=== PATIENT | male | born 1965 | race African-American/Black ===

== ENCOUNTER 2017-10-13 15:15 | Observation (INO) ==
[2017-10-13 18:33] LABS: Baso % (Auto) 0.4 % (0.0-2.0); Eos % (Auto) 0.2 % (0.0-4.0); Hematocrit 42.9 % (39.0-51.0); Hemoglobin 14.7 gm/dL (13.0-17.0); Lymph # (Auto) 1.8 th/mm3 (1.0-4.8); Lymph % (Auto) 16.4 % (9.0-44.0); Mean Corpuscular HGB Conc 34.2 % (32.0-36.0); Mean Corpuscular Hemoglobin 31.5 pg (27.0-34.0); Mean Platelet Volume 8.2 fL (7.0-11.0); Mono # (Auto) 0.5 th/mm3 (0.0-0.9); Mono % (Auto) 4.8 % (0.0-8.0); Neut # (Auto) 8.5 th/mm3 (1.8-7.7); Neut % (Auto) 78.2 % (16.0-70.0); Platelet Count 319 th/mm3 (150-450); Red Blood Count 4.67 mil/mm3 (4.50-5.90); Red Cell Distribution Width 12.9 % (11.6-17.2); White Blood Count 10.8 th/mm3 (4.0-11.0)
[2017-10-13 18:48] LABS: Activated Partial Thrombo Time 24.2 sec (24.3-30.1); Prothrombin Time 10.4 sec (9.8-11.6)
[2017-10-13 18:52] LABS: Alanine Aminotransferase 35 U/L (12-78); Albumin 4.3 g/dL (3.4-5.0); Anion Gap 6 meq/L (5-15); Aspartate Aminotransferase 22 U/L (15-37); Blood Urea Nitrogen 12 mg/dL (7-18); Calcium 9.6 mg/dL (8.5-10.1); Carbon Dioxide 27.8 meq/L (21.0-32.0); Chloride 104 meq/L (98-107); Glomerular Filtration Rate Greater Than 89 mL/min (>89); Glucose,Random 108 mg/dL (74-106); Lipase 121 U/L (73-393); Potassium 5.2 meq/L (3.5-5.1); Sodium 138 meq/L (136-145)
[2017-10-13 18:55] LABS: Alkaline Phosphatase 57 U/L (45-117); Creatine Kinase 134 U/L (39-308); Total Protein 8.5 g/dL (6.4-8.2)
[2017-10-13 19:08] LABS: Creatine Kinase MB 0.7 ng/mL (0.5-3.6)
--- NOTE | 2017-10-13 19:11 | XR ---
EXAM DATE: 10/13/2017 7:08 PM EDT AGE/SEX: 52 years / Male INDICATIONS: Chest pain. Nausea. Vomiting. Syncope. CLINICAL DATA: This is the patient's initial encounter. Patient reports that signs and symptoms have been present for 2 days and indicates a pain score of 9/10. MEDICAL/SURGICAL HISTORY: . Smoker. None. COMPARISON: No prior exams available for comparison. FINDINGS: A single AP view of the chest demonstrates the lungs to be symmetrically aerated without evidence of mass, infiltrate or effusion. The cardiomediastinal contours are unremarkable. Osseous structures a re intact. CONCLUSION: No acute cardiopulmonary process. Electronically signed by: Servando Frank MD 10/13/2017 7:09 PM EDT
--- NOTE | 2017-10-13 19:31 | ED ---
HPI General Chief complaint: Nausea/Vomiting/Diarrhea Stated complaint: GI/syncope Time Seen by Provider: 10/13/17 17:29 Source: patient Mode of arrival: ambulatory Limitations: no limitations History of Present Illness HPI narrative: Patient is a 52-year-old male who comes in complaining of nausea , vomiting, chest pain. He says that he ate some cherries yesterday and about 30 minutes afterwards started vomiting. He says that while he was here in the waiting room he started having some left-sided chest pain that radiates to his arm. He says he last vomited in the waiting room. He said he had some discomfort in his upper abdomen. He denies fever chills. He has not taken anything for symptoms. Severity is moderate. Related Data Previous Rx's Medication Instructions Recorded amlodipine 5 mg PO DAILY #30 tab 10/14/17 hydrocodone-acetaminophen [Reseda] 1 tab PO Q8H PRN 3 Days #10 tab 10/15/17 ondansetron HCl [Zofran] 4 mg PO DAILY PRN 4 Days #10 tab 10/15/17 Allergies Allergy/AdvReac Type Severity Reaction Status Date / Time No Known Allergies Allergy Verified 10/15/17 09:50 Review of Systems Except as stated in HPI: all other systems reviewed are negative Constitutional Denies chills and Denies fever(s) ENT Denies dizziness Cardiovascular Reports chest pain and Denies dyspnea Respiratory Denies dyspnea Gastrointestinal Reports nausea and Reports vomiting Musculoskeletal Denies myalgias and Denies arthralgias Neurologic Denies frequent falls and Denies focal weakness PMFSH Medical History Medical History Patient denies medical problems (Acute) Surgical History Surgical History No history of previous surgery (Acute) Social History Social History Substance History: Active Abuse Second Hand Smoke Exposure: No Smoking Status: Former smoker Tobacco Type: Cigarettes Packs Per Day: 1 Cigarettes Per Day: 20.0 years: 30 How Often Do You Have a Drink Containing Alcohol: Monthly or less Recent Travel in [facility] within the Last 8 Weeks: No Recent Out of Country Travel within the Last 8 Weeks: No Substance Abuse Detail Marijuana: Substance Use Status: Active Route Used Substance Abuse: Inhalation Reason for Use: Calm Down Immunization History Tetanus Immunization: <5 Years Hx Influenza Vaccine This Season: No Exam Narrative Exam Narrative: GENERAL: Awake and alert, in no acute distress. SKIN: Focused skin assessment warm/dry. No wounds or signs of infection. HEAD: Atraumatic. Normocephalic. EYES: Pupils equal and round. No scleral icterus. ENT: Mucous membranes pink and moist. NECK: Trachea midline. No JVD. CARDIOVASCULAR: Regular rate and rhythm. No murmur appreciated. RESPIRATORY: No accessory muscle use. Clear to auscultation. Breath sounds equal bilaterally. GASTROINTESTINAL: Abdomen soft, non-tender, nondistended. MUSCULOSKELETAL: No obvious deformities. No clubbing. No cyanosis. No edema. NEUROLOGICAL: Awake and alert. No obvious cranial nerve deficits. Motor grossly within normal limits. Normal speech. PSYCHIATRIC: Appropriate mood and affect; insight and judgment normal. Course Initial Documented Vital Signs Temperature 98.6 F 10/13/17 15:22 Pulse Rate 73 10/13/17 15:22 Respiratory Rate 22 10/13/17 15:22 Blood Pressure 149/91 H 10/13/17 15:22 Pulse Oximetry 99 10/13/17 15:22 Last Documented Vital Signs Temperature 98.3 F 10/14/17 13:41 Pulse Rate 76 10/14/17 13:41 Respiratory Rate 16 10/14/17 13:41 Blood Pressure 145/83 H 10/14/17 13:41 Pulse Oximetry 97 10/14/17 13:41 Medical Decision Making [facility] Narrative Medical decision making narrative: Patient is a 52-year-old male who comes in complaining of nausea and vomiting chest pain. Nausea vomiting started yesterday, the chest pains are while he was here in the emergency. IV established, labs sent. Patient connected to the desk monitor. Labs show no acute abnormalities. Chest x-ray performed shows no acute abnormalities. Patient given IV fluids and Zofran. Given aspirin. He will be placed in chest pain center for further management. Differential Diagnosis Differential Diagnosis: Gastroenteritis versus ACS the Lab Data Lab results reviewed: Yes I reviewed the patient's lab results. Result diagrams: 10/13/17 18:18 10/13/17 18:18 Lab Results 10/13/17 10/13/17 10/13/17 Range/Units 18:18 18:18 18:18 WBC 10.8 (4.0-11.0) th/mm3 RBC 4.67 (4.50-5.90) mil/mm3 Hgb 14.7 (13.0-17.0) gm/dL Hct 42.9 (39.0-51.0) % MCV 92.0 (80.0-100.0) fL MCH 31.5 (27.0-34.0) pg MCHC 34.2 (32.0-36.0) % RDW 12.9 (11.6-17.2) % Plt Count 319 (150-450) th/mm3 MPV 8.2 (7.0-11.0) fL Neut % (Auto) 78.2 H (16.0-70.0) % Lymph % (Auto) 16.4 (9.0-44.0) % [place] % (Auto) 4.8 (0.0-8.0) % Eos % (Auto) 0.2 (0.0-4.0) % Baso % (Auto) 0.4 (0.0-2.0) % Neut # (Auto) 8.5 H (1.8-7.7) th/mm3 Lymph # (Auto) 1.8 (1.0-4.8) th/mm3 [place] # (Auto) 0.5 (0.0-0.9) th/mm3 Eos # (Auto) 0.0 (0.0-0.4) th/mm3 Baso # (Auto) 0.0 (0.0-0.2) th/mm3 WBC Differential . Differential Comment Auto diff final PT 10.4 (9.8-11.6) sec INR 1.0 Ratio APTT 24.2 L (24.3-30.1) sec Sodium 138 (136-145) meq/L Potassium 5.2 H (3.5-5.1) meq/L Chloride 104 (98-107) meq/L Carbon Dioxide 27.8 (21.0-32.0) meq/L Anion Gap 6 (5-15) meq/L BUN 12 (7-18) mg/dL Creatinine 0.96 (0.60-1.30) mg/dL Estimated GFR Greater than 89 (>89) mL/min Random Glucose 108 H (74-106) mg/dL Calcium 9.6 (8.5-10.1) mg/dL Total Bilirubin 0.4 (0.2-1.0) mg/dL AST 22 (15-37) U/L ALT 35 (12-78) U/L Alkaline Phosphatase 57 (45-117) U/L Total Creatine Kinase 134 (39-308) U/L CK-MB (CK-2) 0.7 (0.5-3.6) ng/mL Troponin I Less than 0.02 L (0.02-0.05) ng/mL Total Protein 8.5 H (6.4-8.2) g/dL Albumin 4.3 (3.4-5.0) g/dL Triglycerides (42-150) mg/dL Cholesterol (120-200) mg/dL LDL Cholesterol, Calc (0-99) mg/dL HDL Cholesterol (40.0-60.0) mg/dL Cholesterol/HDL Ratio Ratio Lipase 121 (73-393) U/L 10/13/17 10/14/17 10/14/17 Range/Units 22:22 00:39 00:39 WBC (4.0-11.0) th/mm3 RBC (4.50-5.90) mil/mm3 Hgb (13.0-17.0) gm/dL Hct (39.0-51.0) % MCV (80.0-100.0) fL MCH (27.0-34.0) pg MCHC (32.0-36.0) % RDW (11.6-17.2) % Plt Count (150-450) th/mm3 MPV (7.0-11.0) fL Neut % (Auto) (16.0-70.0) % Lymph % (Auto) (9.0-44.0) % [place] % (Auto) (0.0-8.0) % Eos % (Auto) (0.0-4.0) % Baso % (Auto) (0.0-2.0) % Neut # (Auto) (1.8-7.7) th/mm3 Lymph # (Auto) (1.0-4.8) th/mm3 [place] # (Auto) (0.0-0.9) th/mm3 Eos # (Auto) (0.0-0.4) th/mm3 Baso # (Auto) (0.0-0.2) th/mm3 WBC Differential Differential Comment PT (9.8-11.6) sec INR Ratio APTT (24.3-30.1) sec Sodium (136-145) meq/L Potassium (3.5-5.1) meq/L Chloride (98-107) meq/L Carbon Dioxide (21.0-32.0) meq/L Anion Gap (5-15) meq/L BUN (7-18) mg/dL Creatinine (0.60-1.30) mg/dL Estimated GFR (>89) mL/min Random Glucose (74-106) mg/dL Calcium (8.5-10.1) mg/dL Total Bilirubin (0.2-1.0) mg/dL AST (15-37) U/L ALT (12-78) U/L Alkaline Phosphatase (45-117) U/L Total Creatine Kinase 107 (39-308) U/L CK-MB (CK-2) (0.5-3.6) ng/mL Troponin I Less than 0.02 L Less than 0.02 L (0.02-0.05) ng/mL Total Protein (6.4-8.2) g/dL Albumin (3.4-5.0) g/dL Triglycerides 209 H (42-150) mg/dL Cholesterol 248 H (120-200) mg/dL LDL Cholesterol, Calc 153 H (0-99) mg/dL HDL Cholesterol 52.9 (40.0-60.0) mg/dL Cholesterol/HDL Ratio 4.68 Ratio Lipase (73-393) U/L Imaging Data Radiologist's impression: Chest X-Ray 10/13/17 18:14 CONCLUSION: No acute cardiopulmonary process. Myocardial Perfusion Scan Nuc Med 10/14/17 00:00 CONCLUSION: 1. Negative examination. ECG Data EKG Prior to Arrival: No Attestation: I personally reviewed and interpreted this ECG as follows: Interpretation: ECG shows normal sinus rhythm, no ST elevation or depression, normal intervals Discharge Plan Discharge Disposition Patient Disposition: 01 Discharge Home Discharge Condition Condition: Good Discharge Order Discharge Orders: Discharge Order (Routine); Ordered 10/14/17 Ordered By: Kiersten Hassan Discharge Details Anticipated Discharge Date: 10/14/17 Discharge Comment: Establish with a primary care provider Diagnosis: Chest pain in adult Physicians Team ED Provider: Briseyda Shearer Primary Care Provider: Primary Care Johanny Alvarez Attending Provider: Eduardo Pedraza Discharge Interventions Interventions: ED Discharge Assessment Last Done: 10/14/17 13:19 Status ED Status: Left Department Discharge Information Discharge Date/Time: 10/14/17 00:00
[2017-10-13] MEDS ORDERED: Acetaminophen 500 MG Tablet PO PRN (20:34)
[2017-10-13 23:06] LABS: Creatine Kinase 107 U/L (39-308)
--- NOTE | 2017-10-14 08:07 | P.HPCA ---
History of Present Illness Primary Care Physician: No Primary Care Physician Chief Complaint: Chest pain History of Present Illness: 52-year-old male current smoker without known medical history presents to ER for further evaluation of chest pain. afternoon immediately after eating a bag of cherries became nauseous with frequent vomiting. Vomited throughout evening. Monday morning upon awakening noticed left anterior and substernal chest pain. Characterized as though someone "sitting on my chest." Severe in severity. Radiation to left shoulder and left arm. Left fingertips characterized as numbness and tingling. Duration 2 hours. Associated symptoms included nausea, dyspnea, it hurt to take a deep breath. No diaphoresis. Vomiting has resolved. No known precipitating or relieving factors. reports on way to hospital he "passed out" for about 3 minutes. He does not recall syncope episode or events prior to syncopal episode. Moved from [place] to [place] last week. Has not seen a general practitioner in years. No known hypertension, hyperlipidemia, coronary artery disease, or diabetes. No fever. No particular movement or position makes pain better or worse. No position or movement makes pain better or worse. Endorses similar discomfort one week. Nonexertional chest tightness, duration of "half the day." Reports hematuria for "many years." Instructed to follow up with an oncologist many years ago. Denies follow up with hematuria, stating "I was afraid of what doctors would say." Fell off [employer] a couple days ago. History of herniated disk in low back and reports reinjuring area during fall. No current chest pain. Current low back pain moderate in severity. No past cardiac testing. - Diagnosis (1) Chest pain in adult (2) Hematuria (3) Tobacco abuse (4) Lumbar radiculopathy, acute Review of Systems All other systems reviewed negative except as stated in HPI Constitutional: Denies chills, Denies fatigue, Denies fever(s), Denies lack of energy, Denies malaise, Denies weakness, Denies weight gain, Denies weight loss Cardiovascular: Denies chest pain with activity, Denies fast heart rate, Denies foot swelling, Denies generalized swelling, Denies irregular heart rhythm, Denies leg pain with activity, Denies shortness of breath, Denies shortness of breath with activity Respiratory: Reports pain on inspiration, Denies chest congestion, Denies cough , Denies coughing up blood, Denies pain with cough, Denies shortness of breath, Denies shortness of breath with activity, Denies stridor, Denies wheezing Gastrointestinal: Denies change in stools, Denies constipation Genitourinary: Reports blood in urine, Denies decreased urination, Denies difficulty urinating, Denies painful urination Comments: Hematuria for "many years." Years ago given referral to urologist, denies ever following up. Musculoskeletal: Reports back pain, Denies joint pain, Denies muscle weakness, Denies neck pain Comments: Middle lower back pain s/p falling from [employer] a couple days ago. No weakness. No incontinence. No saddle anesthesia. History of low back herniated disk. Neurologic: Reports numbness, Reports tingling, Denies lack of coordination, Denies localized weakness Comments: Left fingers numbness/tingling PMFSH - History History Provided By: Patient - Medical / Surgical Hx Neg / Unobtainable Surgical History: No Previous Surgery - Medical History Medical History: Medical History (Last Updated 10/14/17 @ 10:44 by RED Newberry) Lumbar herniated disc Patient denies medical problems - Surgical History Surgical History: Surgical History (Last Reviewed 10/14/17 @ 10:43 by RED Newberry) No history of previous surgery - Family History Family History: Family History (Last Updated 10/14/17 @ 10:45 by RED Newberry) Mother Coronary artery disease - Tobacco History Second Hand Smoke Exposure: No Tobacco Use In Past 30 Days: Yes Smoking Status: Current every day smoker Tobacco Type: Cigarettes Packs Per Day: 1 years: 30 - Alcohol History How Often Do You Have a Drink Containing Alcohol: 2 to 3 times a week - Substance Use History Substance History: Active Abuse - Substance Use Type Marijuana Status: Active Route Used: Inhalation Reason for Use: Calm Down - Travel History Recent Travel in the [place] Within the Last 8 Weeks: No Recent Travel Out of the Country Within the Last 8 Weeks: No - Immunization History Tetanus Immunization: <5 Years Hx Influenza Vaccine This Season: No Medications and Allergies Active Medications: Active Medications Acetaminophen (Tylenol) 500 mg PO Q4H PRN PRN Reason: HEADACHE Last Admin: 10/14/17 05:57 Dose: 500 mg Ondansetron HCl (Zofran Odt) 4 mg SL Q6H PRN PRN Reason: NAUSEA Sodium Chloride (Ns Flush) 2 ml IV.FLUSH UNSCH PRN PRN Reason: FLUSH AFTER USING IV ACCESS Sodium Chloride (Ns Flush) 2 ml IV.FLUSH BID DEAN Last Admin: 10/14/17 01:45 Dose: Not Given Sodium Chloride (Ns Flush) 2 ml IV.FLUSH PRN PRN PRN Reason: FLUSH AFTER USING IV ACCESS Allergies Allergy/AdvReac Type Severity Reaction Status Date / Time No Known Allergies Allergy Unverified 10/13/17 18:13 Home Medications Medication Instructions Recorded Confirmed Type No Known Home Medications 10/14/17 10/14/17 History Exam Vital signs: Vital Signs 10/13/17 15:22 10/13/17 19:56 10/13/17 20:27 Temperature 98.6 F 98.8 F Pulse Rate 73 72 73 Respiratory Rate 22 16 15 Blood Pressure 149/91 H 152/81 H 154/87 H Pulse Oximetry 99 98 98 10/14/17 00:18 10/14/17 03:17 10/14/17 07:47 Temperature 99.6 F 99 F 97.9 F Pulse Rate 83 73 75 Respiratory Rate 18 18 16 Blood Pressure 148/80 H 145/94 H 163/98 H Pulse Oximetry 99 99 96 Intake & Output 10/13/17 10/14/17 10/14/17 18:59 06:59 18:59 Weight 86.183 kg Narrative: Pleasant -[place] male in no acute distress - Constitutional no acute distress - Routine HEENT Exam Head: Present: normocephalic, atraumatic ENT: Present: mucous membranes moist - Routine Neck Exam Present: supple, full ROM. Absent: JVD, carotid bruit - Routine Chest/Breast/Axilla Exam Chest wall: Present: tenderness - Routine Respiratory Exam Present: CTA bilaterally. Absent: accessory muscle use, respiratory distress, rhonchi, wheezes, crackles, distant breath sounds, diminished air movement - Routine Cardiovascular Exam Present: RRR. Absent: murmur, gallop, rubs - Routine Abdominal Exam Present: soft, normoactive bowel sounds. Absent: tenderness, distended, guarding, firm - Routine Extremities Exam Present: full ROM, pulses intact, normal capillary refill. Absent: edema, calf tenderness - Routine Skin Exam Present: intact, warm, normal turgor - Routine Neurological Exam Present: alert, oriented X3, CN II-XII intact, moving all extremities, normal tone - Routine Psychiatric Exam Present: normal affect, normal thought process, cooperative, good insight, good judgment. Absent: anxious, agitated Results 10/13/17 18:18 10/13/17 18:18 Cardiac Enzymes 10/13/17 10/13/17 10/14/17 Range/Units 18:18 22:22 00:39 AST 22 (15-37) U/L CK-MB (CK-2) 0.7 (0.5-3.6) ng/mL Troponin I Less than 0.02 L Less than 0.02 L Less than 0.02 L (0.02-0.05) ng/mL Coagulation 10/13/17 Range/Units 18:18 PT 10.4 (9.8-11.6) sec APTT 24.2 L (24.3-30.1) sec CBC 10/13/17 Range/Units 18:18 WBC 10.8 (4.0-11.0) th/mm3 RBC 4.67 (4.50-5.90) mil/mm3 Hgb 14.7 (13.0-17.0) gm/dL Hct 42.9 (39.0-51.0) % Plt Count 319 (150-450) th/mm3 Neut # (Auto) 8.5 H (1.8-7.7) th/mm3 Lymph # (Auto) 1.8 (1.0-4.8) th/mm3 [place] # (Auto) 0.5 (0.0-0.9) th/mm3 Eos # (Auto) 0.0 (0.0-0.4) th/mm3 Baso # (Auto) 0.0 (0.0-0.2) th/mm3 Comprehensive Metabolic Panel 10/13/17 Range/Units 18:18 Sodium 138 (136-145) meq/L Potassium 5.2 H (3.5-5.1) meq/L Chloride 104 (98-107) meq/L Carbon Dioxide 27.8 (21.0-32.0) meq/L BUN 12 (7-18) mg/dL Creatinine 0.96 (0.60-1.30) mg/dL Calcium 9.6 (8.5-10.1) mg/dL AST 22 (15-37) U/L ALT 35 (12-78) U/L Alkaline Phosphatase 57 (45-117) U/L Total Protein 8.5 H (6.4-8.2) g/dL Albumin 4.3 (3.4-5.0) g/dL Intake and Output 10/13/17 10/14/17 10/14/17 22:59 06:59 14:59 Other: Weight 86.183 kg EKG interpretations - EKG EKG results cardiology: sinus rhythm, normal axis, normal QRS, normal ST/T Caprini VTE Risk Assessment Caprini VTE Risk Assessment: No/Low Risk (score <= 1) Caprini Risk Assessment Model: Point Value = 1 Point Value = 2 Point Value = 3 Point Value = 5 Age 41-60 Minor surgery BMI > 25 kg/m2 Swollen legs Varicose veins or History of unexplained or recurrent spontaneous Oral contraceptives or hormone replacement Sepsis (< 1 month) Serious lung disease, including pneumonia (< 1 month) Abnormal pulmonary function Acute myocardial infarction Congestive heart failure (< 1 month) History of inflammatory bowel disease Medical patient at bed rest Age 61-74 Arthroscopic surgery Major open surgery (> 45 min) Laparoscopic surgery (> 45 min) Malignancy Confined to bed (> 72 hours) Immobilizing plaster cast Central venous access Age >= 75 History of VTE Family history of VTE Factor V Leiden Prothrombin [id number] Lupus anticoagulant Anticardiolipin antibodies Elevated serum homocysteine Heparin-induced thrombocytopenia Other congenital or acquired thrombophilia Stroke (< 1 month) Elective arthroplasty Hip, pelvis, or leg fracture Acute spinal cord injury (< 1 month) Prophylaxis Regimen: Total Risk Factor Score Risk Level Prophylaxis Regimen 0-1 Low Early ambulation 2 Moderate Order ONE of the following: *Sequential Compression Device (SCD) *Heparin 5000 units SQ BID 3-4 Higher Order ONE of the following medications: *Heparin 5000 units SQ TID *Enoxaparin/Lovenox 40 mg SQ daily (WT < 150 kg, CrCl > 30 mL/min) *Enoxaparin/Lovenox 30 mg SQ daily (WT < 150 kg, CrCl > 10-29 mL/min) *Enoxaparin/Lovenox 30 mg SQ BID (WT < 150 kg, CrCl > 30 mL/min) AND/OR *Sequential Compression Device (SCD) 5 or more Highest Order ONE of the following medications: *Heparin 5000 units SQ TID (Preferred with Epidurals) *Enoxaparin/Lovenox 40 mg SQ daily (WT < 150 kg, CrCl > 30 mL/min) *Enoxaparin/Lovenox 30 mg SQ daily (WT < 150 kg, CrCl > 10-29 mL/min) *Enoxaparin/Lovenox 30 mg SQ BID (WT < 150 kg, CrCl > 30 mL/min) AND *Sequential Compression Device (SCD) Assessment and Plan - Assessment (1) Chest pain in adult Code(s): R07.9 - Chest pain, unspecified Status: Acute Plan: Admitted to chest pain center. ACS ruled out with 3 sets of EKGs, cardiac enzymes, monitor on telemetry overnight. Seen and evaluated by Dr. Eduardo Pedraza. Proceed with myocardial perfusion study as patient unable to walk on treadmill due to current radiculopathy pain. Physical exam suggests likely ostial skeletal chest wall pain. If cardiac testing unremarkable, plans are to discharge home. Instructed to establish with a primary care provider for medical management and preventative care. (2) Hematuria Code(s): R31.9 - Hematuria, unspecified Status: Chronic Plan: Strongly encouraged to establish with a primary care provider and urologist due to reported hematuria. Also discussed with patient's . Verbalized understanding however also verbalizes hesitancy of following up due to fear around possible findings. (3) Tobacco abuse Code(s): Z72.0 - Tobacco use Status: Chronic Plan: Strongly encouraged and stressed importance of tobacco cessation. Instructed to quit smoking. (4) Lumbar radiculopathy, acute Code(s): M54.16 - Radiculopathy, lumbar region Status: Acute Plan: Flexeril 10 mg p.o. 1 dose and naproxen 500 mg p.o. 1 dose now. H&P: Quality - VTE Deep Vein Thrombosis/Pulmonary Embolism Present on Admission: No (2) Hematuria Qualifiers: Hematuria type: unspecified type Qualified Code(s): R31.9 - Hematuria, unspecified
[2017-10-14] MEDS ORDERED: Naproxen 500 MG Tablet PO ONE (08:30)
[2017-10-14 09:43] LABS: Chol/HDL Ratio 4.68 Ratio; HDL Cholesterol 52.9 mg/dL (40.0-60.0)
[2017-10-14] MEDS ORDERED: Famotidine 20 MG Tablet PO ONE (11:00)
[2017-10-14] MEDS ORDERED: Regadenoson Inj 0.4 MG/5 ML Syringe IV.PUSH ONE (11:39)
[2017-10-14] MEDS ORDERED: amLODIPine 5 MG Tablet PO ONE (11:48)
--- NOTE | 2017-10-14 13:36 | NM ---
EXAM DATE: 10/14/2017 1:32 PM EDT AGE/SEX: 52 years / Male INDICATIONS:Angina. . Prolonged vomiting after eating followed my substernal chest pain radiating to the left shoulder and arm. CLINICAL DATA: This is the patient's initial encounter. Patient reports that signs and symptoms have been present for 1 day and indicates a pain score of 7/10. MEDICAL/SURGICAL HISTORY: None. Smoker. None. COMPARISON: No prior exams available for comparison. DOSE: 8.5 mCi Tc 99m Myoview at rest 26.8 mCi [id number] at stress 0.4 mg Lexiscan STRESS SYMPTOMS: Dyspnea and chest pain. EJECTION FRACTION: 58 % TECHNIQUE: The patient underwent pharmacologic stress with infusion of prescribed dose. Continuous ECG tracing was monitored during stress. Gated SPECT imaging was performed after stress and conventi onal SPECT imaging was performed at rest. The examination was performed on a SPECT/CT scanner, both attenuation and non-corrected datasets were reviewed. FINDINGS: Distribution: The maximum perfused segment at stress is in the anteroseptal wall. Perfusion Study: The pattern of perfusion at stress is within normal limits. Gated Study: There are intact wall motion and wall thickening without hypokinetic or dyskinetic segm ents. The ejection fraction is calculated at 58%. RISK CATEGORY: Low (<1% Annual Motality Rate) CONCLUSION: 1. Negative examination. Electronically signed by: Tiffanie Martinez MD 10/14/2017 1:35 PM EDT
--- NOTE | 2017-10-15 11:44 | ECG ---
Date Performed: 10/14/2017 Time Performed: 00:25:45 PTAGE: 52 years EKG: Sinus rhythm POSSIBLE RIGHT VENTRICULAR CONDUCTION DELAY BORDERLINE ECG Since PREVIOUS TRACING , no significant change noted DOCTOR: Eduardo Pedraza Interpretating Date/Time 10/15/2017 11:43:18
--- NOTE | 2017-10-15 11:45 | ECG ---
Date Performed: 10/13/2017 Time Performed: 20:44:53 PTAGE: 52 years EKG: Sinus rhythm NORMAL ECG PREVIOUS TRACING : 10/13/2017 17.38 Since previous tracing, no significant change noted DOCTOR: Eduardo Pedraza Interpretating Date/Time 10/15/2017 11:44:15
--- NOTE | 2017-10-15 11:45 | ECG ---
Date Performed: 10/13/2017 Time Performed: 17:38:29 PTAGE: 52 years EKG: Sinus rhythm NORMAL ECG NO PREVIOUS TRACING DOCTOR: Eduardo Pedraza Interpretating Date/Time 10/15/2017 11:44:22
--- NOTE | 2017-10-17 17:00 | TR ---
Date Performed: 10/14/2017 Time Performed: 11:45:06 DOCTOR: Soraya Zuñiga DRUG LIST: CLINICAL HISTORY: REASON FOR TEST: CHEST PAIN REASON FOR ENDING: OBSERVATION: CONCLUSION: Lexiscan stress test was performed under standard four minute protocol. [place]ion[place] e was injected one minute prior to ending the test. No electrocardiographic abormalities were present to suggest ischemia. Nuclear imaging and interpretation are pending. COMMENTS: no ischemia
== END 2017-10-14 16:11 | disposition home or self-care (01) ==
LOC: NEDA 15:15 → NEPD 15:15 → NEPFCDU 15:15
DX: R31.9 Hematuria, unspecified; M54.16 Radiculopathy, lumbar region; F17.210 Nicotine dependence, cigarettes, uncomplicated; I10 Essential (primary) hypertension; R07.2 Precordial pain; R94.31 Abnormal electrocardiogram [ECG] [EKG]; Z82.49 Family history of ischemic heart disease and other diseases of the circulatory system